=== PATIENT | female | born 1940 | race Hispanic/Latino ===

== ENCOUNTER → 2018-03-31 | Outpatient (CLI) | payer OTHER | END | disposition home or self-care (01) | LOC: RAH 07:39 | PROVIDERS: ATTEND Internal Medicine | DX: R92.8 Other abnormal and inconclusive findings on diagnostic imaging of breast (principal) | CPT/HCPCS: 77066 ==

== ENCOUNTER → 2018-10-07 | Outpatient (CLI) | payer OTHER | END | disposition home or self-care (01) | LOC: SHCH 10:10 | PROVIDERS: ATTEND Internal Medicine Cardiovascular Disease | DX: I87.2 Venous insufficiency (chronic) (peripheral) (principal) | CPT/HCPCS: 93970 ==

== ENCOUNTER 2019-10-10 14:51 | Emergency (ER) | payer OTHER | END 2019-10-10 16:45 | disposition home or self-care (01) | LOC: EDH 14:51 | DX: S93.401A Sprain of unspecified ligament of right ankle, initial encounter (principal); I10 Essential (primary) hypertension; E78.5 Hyperlipidemia, unspecified; X58.XXXA Exposure to other specified factors, initial encounter; Y93.89 Activity, other specified; Y92.009 Unspecified place in unspecified non-institutional (private) residence as the place of occurrence of the external cause; Y99.8 Other external cause status | CPT/HCPCS: 73610; 73630 ==

== ENCOUNTER 2025-11-05 19:14 | Emergency (ER) | payer OTHER ==
[~2025-11-05] VITALS: Ht 160 cm; Wt 63.5 kg
--- NOTE | 2025-11-05 19:56 | NUR ---
PATIENT FRED TO ED 19
[2025-11-05] MEDS: LIDOCAINE HCL 1% 20 ML VIAL ONE (20:15)
[2025-11-05] MEDS: LIDOCAINE HCL 1% 20 ML VIAL INJ ONE (20:17)
--- NOTE | 2025-11-05 20:27 | ERN ---
General Chief Complaint: Mechanical Fall Stated Complaint: FALL, PAIN LEFT LEG, LACERATION Time Seen by MD: 20:07 History of Present Illness Initial Comments 85-year-old female history of hypertension, arthritis here for evaluation of left knee laceration status post fall. Patient is a very active 85-year-old who as per son was walking around the garden when she tripped fell on her left knee. She was able to walk afterwards however she decided to come to the emergency room for evaluation. Incident happened at 5:00 p.m. earlier today. Allergies: Coded Allergies: No Known Allergies (Unverified Allergy, Unknown, 11/05/25) Past Medical History Past Medical History: Hypertension Past Surgical History: Hysterectomy, Other Surgical History Other: BLADDER Physical Exam Physical Exam Dictation GENERAL APPEARANCE NAD, activity normal for age, well developed/ well nourished, no cyanosis, pallor, or diaphoresis. EYES lids/conjunctiva normal. EARS/NOSE/THROAT Mucous membranes moist, nares normal, lips/teeth normal uvula midline without oral pharyngeal erythema, exudate or swelling TMs normal bilaterally. No lymphangitis/lymphedema. HEAD/NECK normocephalic atraumatic, no facial trauma, neck is supple. RESPIRATORY respiratory effort normal, speaks in full sentences, no tripod position, no accessory muscle use. Lungs clear to auscultation without rhonchi, wheezes, rales CARDIAC Regular rate and rhythm, no edema. ABDOMINAL Soft, ND/NT. No evidence of fluid wave. No pulsatile masses on exam, rebound tenderness, Nguyen sign or pain over Mcburney's point. MUSCLES/EXTREMITIES No abnormal range of motion, no swelling. SKIN left knee with 3.5 cm linear laceration. Mild active bleeding. NEUROLOGICAL Speech is clear and appropriate. Normal level of consciousness. Gait and coordination are normal. 5/5 strength in all extremities. PSYCH Normal mood and affect. Judgement/competence is appropriate MDM 85-year-old female here for evaluation of left knee laceration status post fall. X-ray negative. Eight sutures were placed. Patient tolerated procedure well. We will have patient discharged home with a PCP follow up in next 7-10 days for suture removal. ED Course Orders Procedure Category Date Status Time Lidocaine Hcl 1% 20ml PHA 11/05/25 Complete Vial (Lidocaine Hc 20:13 Lidocaine Hcl 1% 20ml PHA 11/05/25 Complete Vial (Lidocaine Hc 20:30 Methocarbamol PHA 11/05/25 Complete (Methocarbamol) 20:30 Ketorolac PHA 11/05/25 Complete Tromethamine 15mg/Ml 20:30 Knee 3vws Lt RAD 11/05/25 Resulted 20:12 Ketorolac PHA 11/05/25 Complete Tromethamine 15mg/Ml 20:16 Methocarbamol PHA 11/05/25 Complete (Methocarbamol) 20:16 Current Medications Medications (Trade) Dose Ordered Sig/Kim Route PRN Reason Start Time Stop Time Status Last Admin Dose Admin Ketorolac Tromethamine (toRADol) 15 mg ONCE ONCE IM 11/05/25 20:30 11/05/25 20:31 DC 11/05/25 20:19 Ketorolac Tromethamine (toRADol) 15 mg STK-MED ONCE .ROUTE 11/05/25 20:16 11/05/25 20:16 DC Lidocaine HCl (Lidocaine HCl 1% 20ml Vial) 10 ml ONCE ONCE INJ 11/05/25 20:30 11/05/25 20:31 DC Lidocaine HCl (Lidocaine HCl 1% 20ml Vial) 20 ml STK-MED ONCE .ROUTE 11/05/25 20:13 11/05/25 20:13 DC Methocarbamol (methoCARBamol) 500 mg ONCE ONCE PO 11/05/25 20:30 11/05/25 20:31 DC 11/05/25 20:19 Methocarbamol (methoCARBamol) 500 mg STK-MED ONCE PO 11/05/25 20:16 11/05/25 20:16 DC Vital Signs Date Time Temp Pulse Resp B/P (MAP) Pulse Ox O2 Delivery O2 Flow Rate FiO2 11/05/25 20:04 98.4 82 18 186/92 98 Room Air* 0 21 11/05/25 19:54 98.2 85 18 154/76 97 Room Air Laceration/Wound Repair Laceration/Wound Repair : Wound Location: lower extremity Wound's Depth, Shape: superficial Wound Explored: clean Betadine Prep?: No Anesthesia: 1% Lidocaine Wound Debrided: minimal Wound Repaired With: sutures Suture Size/Type: 3:0, nylon Number of Sutures: 8 Layer Closure?: Yes Sterile Dressing Applied?: Yes DX & DISP Disposition: Discharge Departure Impression: Primary Impression: Laceration of knee Additional Impression: Fall Condition: Stable Scripts Naproxen (Naproxen) 250 Mg Tablet 1 TAB PO BID for pain for 5 Days, #10 TAB 0 Refills Prov: DAVID CORRIGAN MD 11/05/25 Methocarbamol (Methocarbamol) 500 Mg Tablet 1 TAB PO BID for 10 Days, #20 TAB 0 Refills Prov: DAVID CORRIGAN MD 11/05/25 Referrals: RADHA DUGGAN MD (PCP) DAVID CORRIGAN MD Nov 05, 2025 20:27
--- NOTE | 2025-11-05 21:34 | HMCIMG ---
Findings: Mild diffuse degenerative changes. No evidence of fracture. No dislocation. Soft tissues appear unremarkable. Impression: Degenerative changes /[place]
[2025-11-05 22:28] VITALS: BP 165/74; PULSE 86; RESP 20; TEMP 98.5; O2SAT 99
== END 2025-11-05 22:27 | disposition home or self-care (01) ==
LOC: EDH 19:14
DX: S81.012A Laceration without foreign body, left knee, initial encounter (principal); I10 Essential (primary) hypertension; Z90.710 Acquired absence of both cervix and uterus; W01.0XXA Fall on same level from slipping, tripping and stumbling without subsequent striking against object, initial encounter; Y93.01 Activity, walking, marching and hiking; Y92.89 Other specified places as the place of occurrence of the external cause; Y99.8 Other external cause status
CPT/HCPCS: 99283; 73562; 12002; 96372; J1885